=== PATIENT | female | born 1975 | race Caucasian/White ===

== ENCOUNTER 2019-04-16 11:23 | Outpatient (CLI) | payer BC ==
[2019-04-16] VITALS (21 sets, daily range): BP systolic 130–163; BP diastolic 75–110
== END 2019-04-16 23:59 | disposition home or self-care (01) ==
LOC: CARD DIAG 11:23
PROVIDERS: ATTEND Internal Medicine Cardiovascular Disease
DX: R42 Dizziness and giddiness (principal)
CPT/HCPCS: 93660